=== PATIENT | male | born 1995 | race Two or more races ===

== ENCOUNTER 2024-03-05 17:12 | Emergency (ER) | payer OTHER ==
[~2024-03-05] VITALS: Ht 180.3 cm; Wt 99.8 kg
[2024-03-05] MEDS ORDERED: METHYLPREDNISOLONE SOD SUCC 125 MG VIAL IV ONE (20:00)
[2024-03-05] MEDS ORDERED: IPRATROPIUM/ALBUTEROL SULFATE 3 ML AMPUL.NEB IH SCH (20:00)
[2024-03-05] MEDS ORDERED: GUAIFENESIN 200 MG/10 ML BLIST.PACK PO ONE (20:00)
[2024-03-05] MEDS ORDERED: METHYLPREDNISOLONE SOD SUCC 125 MG VIAL ONE (20:09)
[2024-03-05] MEDS ORDERED: GUAIFENESIN/DEXTROMETHORPHAN 10ML BLIST.PACK PO ONE (20:10)
[2024-03-05] MEDS ORDERED: WATER FOR INJ.,BACTERIOSTATIC 30 ML VIAL IJ ONE (20:10)
[2024-03-05 20:31] LABS: HEMATOCRIT 43.3 % (39.0-48.0); HEMOGLOBIN 15.2 g/dL (13-16.00); MEAN CELL VOLUME 85.6 fL (80.0-100.00); MEAN CORPUSCULAR HGB CONC 35.1 g/dl (32.0-36.0); PLATELET COUNT 257 K/uL (150-450); RED BLOOD COUNT 5.06 M/uL (4.00-6.00); RED CELL DISTRIBUTION WIDTH 13.8 % (11.5-14.5)
[2024-03-05] MEDS ORDERED: IPRATROPIUM/ALBUTEROL SULFATE 3 ML AMPUL.NEB IH ONE (20:58)
[2024-03-05 21:02] LABS: GFR 88.34; POTASSIUM 3.75 mEq/L (3.5-5.1)
== END 2024-03-05 23:03 | disposition home or self-care (01) ==
LOC: ER 17:14
PROVIDERS: Emergency Medicine
DX: R53.81 Other malaise (principal); J40 Bronchitis, not specified as acute or chronic; Z20.822 Contact with and (suspected) exposure to COVID-19

== ENCOUNTER 2024-03-06 10:29 | Outpatient (CLI) | payer OTHER | END 2024-03-06 10:33 | disposition home or self-care (01) | LOC: RAD 10:29 | PROVIDERS: ATTEND Internal Medicine Pulmonary Disease | DX: R05.3 Chronic cough (principal) ==

== ENCOUNTER 2024-03-18 01:38 | Emergency (ER) | payer OTHER ==
[~2024-03-18] VITALS: Ht 180.3 cm; Wt 103.9 kg
[2024-03-18] MEDS ORDERED: 0.9 % SODIUM CHLORIDE 1,000 ML IV STA (03:23)
[2024-03-18] MEDS ORDERED: ONDANSETRON HCL 2 MG/ML VIAL IV STA (03:24)
[2024-03-18] MEDS ORDERED: FAMOtidine 10 MG/ML (4ML VIAL) IV PUSH STA (03:25)
[2024-03-18] MEDS ORDERED: ONDANSETRON HCL 2 MG/ML VIAL ONE (03:28)
[2024-03-18] MEDS ORDERED: HYOSCYAMINE SULFATE 0.125 MG TAB.SUBL ONE (03:28)
[2024-03-18] MEDS ORDERED: FAMOTIDINE/PF 20 MG/2 ML VIAL ONE (03:28)
[2024-03-18] MEDS ORDERED: HYOSCYAMINE SULFATE 0.125 MG TAB.SUBL SL ONE (03:30)
[2024-03-18 03:54] LABS: HEMATOCRIT 43.9 % (39.0-48.0); HEMOGLOBIN 15.4 g/dL (13-16.00); MEAN CELL VOLUME 85.9 fL (80.0-100.00); MEAN CORPUSCULAR HEMOGLOBIN 30.2 pg (27.00-32.0); MEAN CORPUSCULAR HGB CONC 35.2 g/dl (32.0-36.0); PLATELET COUNT 264 K/uL (150-450); RED BLOOD COUNT 5.11 M/uL (4.00-6.00); RED CELL DISTRIBUTION WIDTH 13.7 % (11.5-14.5)
[2024-03-18 04:03] LABS: CALCIUM 9.2 mg/dL (8.5-10.1); CREATININE SERUM 1.16 mg/dL (0.70-1.30); GFR 74.43; POTASSIUM 4.2 mEq/L (3.5-5.1)
[2024-03-18] MEDS ORDERED: DIPHENOXYLATE HCL/ATROPINE 1 UDTAB TABLET PO STA (07:30)
== END 2024-03-18 11:54 | disposition home or self-care (01) ==
LOC: ER 01:41
DX: K52.89 Other specified noninfective gastroenteritis and colitis (principal); S00.83XA Contusion of other part of head, initial encounter